=== PATIENT | female | born 1990 | race Caucasian/White ===

== ENCOUNTER 2020-05-15 14:52 | Outpatient (CLI) | payer SELFPAY ==
--- NOTE | 2020-05-15 14:59 | XR_ITS ---
WS: [id number] Abdomen series, Flat and upright 05/15/2020 Clinical Data: ABDOMINAL DISTENSION Comparison: None. Findings: There are clips in the right upper quadrant from a prior cholecystectomy. No free air is se en beneath the diaphragms. There are air-fluid levels in the stomach, small bowel and colon but no ev idence of bowel dilatation or obstruction. No abnormal calcifications are seen. The midportion and lo wer portion of the abdomen is relatively gasless and the patient could have a pelvic or abdominal mas s. XR/XR abdomen min 2V [id number] Impression: 1. Possible pelvic or abdominal mass. 2. Recommend pelvic and lower abdominal ultrasound.
== END 2020-05-15 14:53 | disposition home or self-care (01) ==
LOC: RADWPI 14:57
PROVIDERS: Family Provider Nurse Practitioner Family; PCP Nurse Practitioner Family; Visit Provider Nurse Practitioner Family
DX: R14.0 Abdominal distension (gaseous) (principal)
CPT/HCPCS: 74019

== ENCOUNTER 2020-05-24 07:14 | Outpatient (CLI) | payer SELFPAY ==
--- NOTE | 2020-05-24 07:19 | US_ITS ---
WS: [id number] Complete ABDOMINAL ULTRASOUND HISTORY: ABNORMAL FINDINGS COMPARISON: None available. Liver: 16.7 cm in length. Liver is normal size and echogenicity with no mass or intrahepatic dilatati on. Gallbladder: Prior cholecystectomy. Pancreas: Not visualized. CBD: 0.5 cm. Right kidney: 10.4 cm x 5.6 cm x 5.7 cm. Moderate hydronephrosis. No mass. Left kidney: 9.5 cm x 5.7 cm x 4.8 cm. No mass, cortical thickening or hydronephrosis. Spleen: Normal size and echogenicity. Aorta and IVC are not well visualized. There is a large cystic mass with septations in the mid line of the abdomen extending into the pelvis . This mass measures at least 26 x 11 cm. US/US abdomen complete* [id number] IMPRESSION: 1. Large complex cystic mass with septations measuring at least 26 x 11 cm in the pelvis and abdomen. Also evaluated on a pelvic ultrasound performed on the same day. Benign and malignant etiologies are possible. Recommend follow-up wit h [facility] for surgical removal. 2. Moderate RIGHT hydronephrosis is likely secondary to the pelvic mass obstru cting the ureter.
--- NOTE | 2020-05-24 07:19 | US_ITS ---
WS: [id number] TRANSABDOMINAL PELVIC AND TRANSVAGINAL PELVIC ULTRASOUND HISTORY: ABNORMAL FINDINGS COMPARISON: None available. Uterus: 8.2 cm x 3.8 cm x 2.7 cm. Anteverted uterus. No fibroid or mass. Endometrium: 0.8 cm. Normal endometrium. Right ovary: Not visualized. Left ovary: 2.7 cm x 2.9 cm x 2.0 cm. Small follicles. No solid or cystic component. There is a large mass predominantly cystic centered in the pelvis and extending into the abdomen. Dexter ating debris and septations are noted. There is no dense solid component. Mass measures at least 23 c m in length by 11 cm transversely. US/US pelvic with transvaginal IMPRESSION: 1. Complex cystic mass centered in the pelvis extending into the abdomen measu res at least 23 x 11 cm. Etiology is likely ovarian and includes benign and mal ignant etiologies. Surgical removal and [employer] consultation is recommended. 2. RIGHT ovary is not identified as a discrete structure. Mass may be arising from the ovary.
== END 2020-05-24 07:15 | disposition home or self-care (01) ==
LOC: RAD 07:15
PROVIDERS: Family Provider Nurse Practitioner Family; PCP Nurse Practitioner Family; Visit Provider Nurse Practitioner Family
DX: R93.5 Abnormal findings on diagnostic imaging of other abdominal regions, including retroperitoneum (principal); N94.89 Other specified conditions associated with female genital organs and menstrual cycle; N13.30 Unspecified hydronephrosis
CPT/HCPCS: 76700; 76830; 76856

== ENCOUNTER 2021-08-09 09:35 | Outpatient (CLI) | payer OTHER, SELFPAY ==
--- NOTE | 2021-08-09 10:00 | FL_ITS ---
WS: [id number] HYSTEROSALPINGOGRAM The cervical opening was cannulated by the harness repairer. Then under fluoroscopic guidance, water-solu ble contrast was injected in a retrograde fashion. CLINICAL INFORMATION: N97.9 - Female infertility, unspecified COMPARISON: None. FINDINGS: The uterus fills normally, with no evidence of contour abnormality, filling defect, septum, or strict ure. Normal filling and rapid spillage of the left fallopian tube. Rapid filling of the right fallopi an tube without evidence of spillage. No significant spillage from the right fallopian tube. FLUOROSCOPY TIME: 0.5 minutes. FL/FL hysterosalpingography [id number] IMPRESSION: 1. Normal left fallopian tube with rapid spillage into the peritoneum. 2. No significant spillage from the right fallopian tube.
--- NOTE | 2021-08-09 10:28 | PM.ACPR ---
Procedure/Consent Procedure Narrative: Radiologic procedure Date of procedure: 08/09/2021 Date of dictation: 08/09/2021 Procedural diagnosis: Infertility Procedure done: Placement of hysterosalpingogram catheter Physician: Dr. Abilio Vera Anesthesia: None Indication: To assess patency of fallopian tubes Complications: None, patient tolerated the procedure well PROCEDURE: The procedure was explained to the patient and verbal consent provided. Sterile speculum was placed in the vagina and the cervix was prepped with Betadine. The cervix was grasped with a single-tooth tenaculum. Using Omnipaque dye, the HSG catheter was primed. The catheter was inserted into the cervix and the speculum was removed. Fluoroscopy was performed by the radiologist. Omnipaque dye was injected into the endometrial cavity with normal filling of the cavity. Bilateral tubes appeared normal caliber with immediate spill of dye on the left side but no spill noted on the right side by me. The tenaculum and catheter were removed. Patient tolerated the procedure well. Please see separate radiologist report for final interpretation. Followup appointment: She is to followup at her next scheduled appointment
[2021-08-09] MEDS: iohexol 300 mg/mL 50 mL Btl VAGINAL (10:38)
== END 2021-08-09 09:36 | disposition home or self-care (01) ==
LOC: RAD 09:42
PROVIDERS: PCP Nurse Practitioner Family; Visit Provider Obstetrics & Gynecology
DX: N97.9 Female infertility, unspecified (principal)
CPT/HCPCS: 74740

== ENCOUNTER → 2021-08-20 14:30 | Outpatient (BNVA) | payer OTHER, SELFPAY | PROVIDERS: PCP Nurse Practitioner Family; Visit Provider Obstetrics & Gynecology | DX: N97.9 Female infertility, unspecified (principal); Z90.721 Acquired absence of ovaries, unilateral | CPT/HCPCS: 76830 ==

== ENCOUNTER → 2021-08-22 13:47 | Outpatient (BNVA) | payer OTHER, SELFPAY | PROVIDERS: PCP Nurse Practitioner Family; Visit Provider Obstetrics & Gynecology | DX: N97.9 Female infertility, unspecified (principal) | CPT/HCPCS: 83036; 83520; 84144; 84443 ==

== ENCOUNTER → 2022-03-25 10:07 | Outpatient (BNVA) | payer OTHER, SELFPAY | PROVIDERS: PCP Nurse Practitioner Family; Visit Provider Obstetrics & Gynecology | DX: N93.9 Abnormal uterine and vaginal bleeding, unspecified (principal); N97.9 Female infertility, unspecified; N83.8 Other noninflammatory disorders of ovary, fallopian tube and broad ligament; Z90.721 Acquired absence of ovaries, unilateral | CPT/HCPCS: 76830 ==

== ENCOUNTER → 2022-04-09 08:11 | Outpatient (BNVA) | payer OTHER, SELFPAY | PROVIDERS: PCP Nurse Practitioner Family; Visit Provider Obstetrics & Gynecology | DX: R93.89 Abnormal findings on diagnostic imaging of other specified body structures (principal); N85.4 Malposition of uterus; Z90.721 Acquired absence of ovaries, unilateral | CPT/HCPCS: 76830 ==